=== PATIENT | female | born 1945 | race Caucasian/White ===

== ENCOUNTER 2016-06-02 10:08 | Inpatient (IN) | payer OTHER ==
[2016-05-19 12:49] VITALS: BMI 23.0
--- NOTE | 2016-05-19 13:31 | PAT Medication Instructions ---
Service Date May 19, 2016. Current Home Medication List Buspirone Hcl (Buspirone Hcl), 10 MG PO BID Clonazepam (Klonopin), 0.5 MG PO BID PRN for Anxiety Ferrous Sulfate (Kp Ferrous Sulfate), 1 TAB PO QAM Fluticasone Propionate (Nasal) (Flonase Allergy Relief), 2 SPRAY NA DAILY PRN for CONGESTION Hctz/Lisinopril (Lisinopril/Hctz 10/12.5 Mg), 1 TAB PO QAM Melatonin (Melatonin Maximum Strengt), 1 TAB PO HS Pantoprazole (Protonix), 40 MG PO DAILY PRN for STOMACH Paroxetine (Paxil), 40 MG PO QAM Trazodone Hcl (Desyrel), 50-100 MG PO HS Valacyclovir Hcl (Valtrex), 1 GM PO DAILY PRN for COLD SORE Medication Instructions For Your Scheduled Surgery - Hold the following medications the morning of surgery: Hctz/Lisinopril (Lisinopril/Hctz 10/12.5 Mg), 1 TAB PO QAM Ferrous Sulfate (Kp Ferrous Sulfate), 1 TAB PO QAM Valacyclovir Hcl (Valtrex), 1 GM PO DAILY PRN for COLD SORE - Take the following medications the morning of surgery with a sip of water: Paroxetine (Paxil), 40 MG PO QAM Pantoprazole (Protonix), 40 MG PO DAILY PRN for STOMACH Fluticasone Propionate (Nasal) (Flonase Allergy Relief), 2 SPRAY NA DAILY PRN for CONGESTION Clonazepam (Klonopin), 0.5 MG PO BID PRN for Anxiety Buspirone Hcl (Buspirone Hcl), 10 MG PO BID - Take the following medications as scheduled the night before surgery: Trazodone Hcl (Desyrel), 50-100 MG PO HS Melatonin (Melatonin Maximum Strengt), 1 TAB PO HS Clonazepam (Klonopin), 0.5 MG PO BID PRN for Anxiety Buspirone Hcl (Buspirone Hcl), 10 MG PO BID If you have any questions please call us at [phone] or [phone] ( [place]) or [phone]
[2016-05-19 14:08] LABS: BASO % 0.3 %; BASO ABS # 0.02 K/uL (0-0.2); COMPLETE YES; HEMATOCRIT 39.3 % (37-47); IG% 0.3 %; LYMPH % 29.2 %; LYMPH ABS # 2.07 K/uL (1.2-3.4); MEAN CELL VOLUME 82.4 fL (80-100); MEAN CORPUSCULAR HEMOGLOBIN 28.5 pg (25-34); MEAN CORPUSCULAR HGB CONC 34.6 g/dl (32-36); MEAN PLATELET VOLUME 8.8 fL (7.4-10.4); MONO % 5.1 %; NEUT % 64.1 %; PLATELET COUNT 328 K/uL (130-400); RED BLOOD COUNT 4.77 M/uL (4.2-5.4)
--- NOTE | 2016-05-19 14:16 | DIAGNOSTIC IMAGING REPORT ---
CHEST PREADMISSION(PA/LAT) CLINICAL HISTORY: Preoperative chest COMPARISON STUDY: None FINDINGS: The heart is normal in size. There is a right aortic arch. There is a retrocardiac opacity containing air bubble, consistent with a hiatal hernia. There is no failure. There is no focal pulmonary consolidation. There are no pleural effusions. There is an L1 compression deformity.[ IMPRESSION: 1. Right aortic arch 2. Small hiatal hernia 3. Age-indeterminate L1 compression fracture 4. No evidence of failure. No evidence of focal pulmonary consolidation Electronically signed by: Norberto Abreu M.D. 05/19/2016 2:14 PM Dictated Date/Time: 05/19/2016 2:13 PM
[2016-05-19 14:19] LABS: URINE APPEARANCE CLEAR (CLEAR); URINE BILIRUBIN NEG (NEG); URINE COLOR YELLOW; URINE EPITHELIAL CELL AUTO 20-30 /lpf (0-5); URINE NITRITE NEG (NEG); URINE SPECIFIC GRAVITY 1.012 (1.000-1.030); UROBILINOGEN NEG (NEG); ZZUR CULT IF INDIC CLEAN CATCH NO
[2016-05-19 14:24] LABS: PROTHROMBIN TIME (PATIENT) 10.6 SECONDS (9.0-12.0)
[2016-05-19 14:29] LABS: BUN/CREATININE RATIO 13.3 (10-20); CALCIUM 9.3 mg/dl (8.5-10.1); CREATININE 1.2 mg/dl (0.60-1.20); POTASSIUM 2.9 mmol/L (3.5-5.1)
[2016-05-19 14:30] LABS: MANUAL MICROSCOPIC REQUIRED? NO; REVIEW REQ? NO
--- NOTE | 2016-06-01 12:12 | HISTORY & PHYSICAL EXAMINATION ---
DATE OF ADMISSION: 06/02/2016 CHIEF COMPLAINT: Left knee pain. HISTORY OF PRESENT ILLNESS: Tati is a 70-year-old female with a multiple-year history of pain in her left knee. The patient rates her pain a 9/10. She has pain with her daily activities. She has limited standing and walking tolerance. Pain is worse with weightbearing. The patient has had anti-inflammatories, bracing, home exercise program, and narcotics without relief. She has failed conservative treatment and is scheduled for a left knee replacement. PAST MEDICAL HISTORY: Anxiety. She denies heart disease, diabetes or DVT. PAST SURGICAL HISTORY: Spinal fusion and appendectomy. SOCIAL HISTORY: She denies alcohol or tobacco use. She lives in a single story home. She lives alone and is retired but her daughter is planning to stay with her postoperatively. FAMILY HISTORY: Positive for PE x2 in her daughter status post hip replacement. MEDICATIONS: Fluticasone 50 mcg, ferrous sulfate 325 mg, Percocet 5/325 p.r.n., buspirone 10 mg twice daily, pantoprazole 40 mg daily, trazodone 50 mg 2 tablets at bedtime, melatonin 5 mg at bedtime, aspirin 81 mg, ProAir HFA 108 mcg 2 puffs p.r.n., valacyclovir 2 tabs q. 12 hours p.r.n., clonazepam 0.5 mg 2 tablets b.i.d., paroxetine 40 mg daily, lisinopril/hydrochlorothiazide 10/12.5 mg daily. ALLERGIES: DEMEROL AND BACTRIM. REVIEW OF SYSTEMS: See HPI. Ten other systems reviewed, all negative. PHYSICAL EXAMINATION: VITAL SIGNS: Height 5 feet 2 inches, weight 130 pounds, BMI is 24. GENERAL: This is a well-developed, well-nourished female who is alert and oriented x3. Mood and affect are appropriate. HEENT: Normocephalic, atraumatic. Mucous membranes are moist and intact. NECK: Supple without lymphadenopathy. HEART: Regular rate and rhythm without rubs or gallops. A systolic murmur noted. LUNGS: Clear to auscultation without wheezes or rhonchi. ABDOMEN: Soft and nontender. Bowel sounds are equal and active. EXTREMITIES: No ecchymosis, redness or warmth. Thigh and calf are soft and nontender. She has valgus deformity. Range of motion is from 0-115 degrees with +1 laxity. She has crepitus with range of motion. She is neurovascularly intact with +5/5 strength. X-RAY EXAMINATION: AP and lateral views show joint space narrowing and osteophyte formation. IMPRESSION: Degenerative joint disease, left knee. PLAN: The patient will be admitted for a left total knee arthroplasty. We will plan on aspirin for DVT prophylaxis. The patient will likely have home physical therapy. PCP is Dr. Devendra Harvey.
[2016-06-02] VITALS (9 sets, daily range): BP systolic 86–138; BP diastolic 50–94; PULSE 54–76; TEMP 36.5–36.9; O2SAT 94–99; Ht 160 cm; Wt 59.5 kg
[~2016-06-02] VITALS: Ht 160 cm; Wt 59.5 kg
[2016-06-02] MEDS: TRANEXAMIC ACID INJ 1,000 MG in SODIUM CHLORIDE 0.9% 100ML 100 ML IV SCH ×2 (06:30→13:02)
[~2016-06-02 10:08] MED LIST: ACETAMINOPHEN 500 MG TAB PO SCH; BUPIVACAINE 0.5 % 5 MG/1 ML PF 10ML VIAL ONE; BUSP-8 PO; CLON0.5T3 PO; DEXAMETHASONE 4 MG TAB PO SCH; FAMOTIDINE 20 MG TAB PO SCH; FERR1TAB13 PO; FLUT0.15; GABAPENTIN 300 MG CAP PO SCH; LACTATED RINGER'S 1000ML 1,000 ML IV SCH; LACTATED RINGER'S 1000ML 500 ML IV ONE; LACTATED RINGER'S 1000ML IV SCH; LSN/10125 PO; MELATAB2 PO; METOCLOPRAMIDE HCL 10 MG TAB PO SCH; OXYCODONE HCL 10 MG TABCR (OXYCONTIN) PO SCH; PANT40TA PO; PARO1TAB29 PO; POLYMYXIN B SULFATE 100,000 UNITS in NSS 100ML IR SCH; ROPIVACAINE 5MG/ML 30 ML 150 MG, BUPIVACAINE/EPINEPHR 0.5% MPF 30 ML, KETOROLAC TROMETH... INFIL SCH; TRAZ-119 PO; VALA1TAB31 PO; VANCOMYCIN INJ 400 MG in NSS 100ML IR SCH
[2016-06-02] MEDS ORDERED: EpHEDrine SULFATE INJ 50 MG/ML AMP IV PRN (11:45)
[2016-06-02] MEDS ORDERED: ONDANSETRON INJ 2 MG/ML 2 ML VIAL IV PRN ×2 (11:45→14:45)
[2016-06-02] MEDS ORDERED: FENTANYL CITRATE INJ 50 MCG/1 ML 2 ML VIAL IV PRN (11:45)
[2016-06-02] MEDS ORDERED: ATROPINE SULFATE 0.1 MG/ML 5ML SYR IV PRN (11:45)
[2016-06-02] MEDS ORDERED: MoRPHine SULFATE 10 MG/ML CARP/VIAL IV PRN (11:45)
[2016-06-02] MEDS ORDERED: MIDAZOLAM HCL 1 MG/ML 2ML VIAL ONE ×2 (11:55)
[2016-06-02] MEDS ORDERED: FENTANYL CITRATE INJ 50 MCG/1 ML 2 ML VIAL ONE (11:55)
--- NOTE | 2016-06-02 12:20 | History & Physical Bridge Note ---
H&P Re-Evaluation Bridge Note: I have examined the patient, reviewed the History & Physical and in the interval since the performance of the History & Physical I have noted the following changes of clinical significance: No changes noted
[2016-06-02] MEDS ORDERED: ORTHO JOINT ANESTHETIC ONE (13:06)
[2016-06-02] MEDS ORDERED: BUPIVACAINE/EPINEPHRINE 0.25% 1:200,000 30 ML VIAL ONE (13:07)
[2016-06-02] MEDS ORDERED: BACITRACIN 50000 UNIT VIAL ONE (13:07)
[2016-06-02] MEDS ORDERED: POVIDONE-IODINE OP SOLN 30 ML BTL ONE (13:07)
[2016-06-02] MEDS: CEFAZOLIN 2000 MG/60 ML D5W 60 ML IV SCH ×2 (13:22→13:29)
--- NOTE | 2016-06-02 14:31 | [facility] Post Operative Brief Note ---
Immediate Operative Summary Operative Date Jun 02, 2016. Pre-Operative Diagnosis Degenerative joint disease, left knee Post-Operative Diagnosis Same as preop Procedure(s) Performed Left total knee arthroplasty Surgeon Dr. Paredes Instructor Traffic Safety Surgeon(s) Aparna Kowalski PA-C Estimated Blood Loss 50 cc Findings djd Specimens A: left knee bone and tissue Complication(s) None Disposition Recovery Room / PACU
[2016-06-02] MEDS ORDERED: FLUTICASONE PROPIONATE NA SPR 16 GM BTL PRN (14:45)
[2016-06-02] MEDS ORDERED: BISACODYL 10 MG SUPP PR PRN (14:45)
[2016-06-02] MEDS ORDERED: ZOLPIDEM TARTRATE 5 MG TAB PO PRN (14:45)
[2016-06-02] MEDS ORDERED: OXYCODONE HCL IR 5 MG TAB (IMMEDIATE RELEASE) PO PRN (14:45)
[2016-06-02] MEDS ORDERED: TRAMADOL HCL 50 MG TAB PO PRN (14:45)
[2016-06-02] MEDS ORDERED: DiphenhydrAMINE HCL 50 MG/ML VIAL IV PRN (14:45)
[2016-06-02] MEDS ORDERED: KETOROLAC TROMETHAMINE 15 MG/ML VIAL IV. PRN (14:45)
[2016-06-02] MEDS ORDERED: MAGNESIUM HYDROXIDE SUSP 30 ML UDC PO PRN (14:45)
[2016-06-02] MEDS ORDERED: ALUMINUM/MAGNESIUM/SIMETH (MAALOX MAX) 30 ML UDC PO PRN (14:45)
[2016-06-02] MEDS ORDERED: CLONAZEPAM 0.5 MG TAB PO PRN (14:45)
[2016-06-02] MEDS ORDERED: MoRPHine SULFATE 2 MG/ML CARP IV PRN (14:45)
[2016-06-02] MEDS ORDERED: METOCLOPRAMIDE HCL INJ 5 MG/ML 2 ML VIAL IV PRN (14:45)
[2016-06-02] MEDS ORDERED: SOD PHOSPHATE/SOD BIPHOSPHATE ENEMA 132 ML BTL PR PRN (14:45)
[2016-06-02] MEDS ORDERED: PROPOFOL IV EMULSION 10 MG/ML 20 ML VIAL IV ONE (15:05)
--- NOTE | 2016-06-02 15:21 | DIAGNOSTIC IMAGING REPORT ---
LEFT KNEE 2 VIEWS History: Left total knee arthroplasty. Degenerative arthritis. Postop. FINDINGS: The patient is status post a left total knee arthroplasty. The hardware is intact. No fracture or dislocation. Surgical drains are in place. IMPRESSION: Left total knee arthroplasty. No evidence for hardware complication. Electronically signed by: Bishop Dominguez M.D. 06/02/2016 3:20 PM Dictated Date/Time: 06/02/2016 3:19 PM
--- NOTE | 2016-06-02 15:30 | Anesthesiology Progress Note ---
Anesthesia Post Op Note Date & Time Jun 02, 2016 at 15:30 Vital Signs Pain Intensity: 0 Vital Signs Past 12 Hours Date Time Temp Pulse Resp B/P Pulse Ox O2 Delivery O2 Flow Rate FiO2 06/02/16 15:20 73 16 92/61 94 Nasal Cannula 2 06/02/16 15:10 69 14 96/57 98 Mask 10 06/02/16 15:01 37.1 79 14 110/62 98 Mask 10 06/02/16 10:51 36.7 74 20 138/94 96 Room Air Notes Mental Status: alert / awake / arousable, participated in evaluation Pt Amnestic to Procedure: Yes Nausea / Vomiting: adequately controlled Pain: adequately controlled Airway Patency, RR, SpO2: stable & adequate BP & HR: stable & adequate Hydration State: stable & adequate Neuraxial Anesthesia: was administered, sensory block is resolving Anesthetic Complications: no major complications apparent
--- NOTE | 2016-06-02 16:37 | OPERATIVE REPORT ---
DATE OF OPERATION: 06/02/2016 PREOPERATIVE DIAGNOSIS: Degenerative arthritis, left knee. POSTOPERATIVE DIAGNOSIS: Same. PROCEDURE: Left total knee with patient matched implant. SURGEON: Dr. Paredes. METAL SPRAYER PRODUCTION: ALISE Arevalo. ANESTHESIA: Spinal. BLOOD LOSS: 50 mL. REPLACEMENT FLUIDS: 1500 mL crystalloid. DRAINS: Hemovac x2. CULTURES: None. COMPLICATIONS: None. COMPONENTS USED: [employer] Knee System: Femur size 3, tibia size 2 x 11, patella size 21. NOTE: ALISE Arevalo was present and assisted throughout due to the complicated nature of this case. He helped with preparation and set up, first assisted throughout and personally closed capsule, subcutaneous and skin layers and applied the postoperative dressing. DESCRIPTION: Following satisfactory spinal, the patient was supine. A tourniquet was placed but not inflated. The lower extremity was prepared with ChloraPrep and draped sterilely. Following a surgical time-out, a midline incision was made with a trivector approach. The knee showed severe grade 4 changes, especially in the lateral and patellofemoral compartments. The cruciate ligaments were excised. The patient matched femoral block was applied. Femoral distal rotation and resection were set and completed. The 4-in-1 block was used to finish preparation of the femur. The patient matched tibial block was applied. Tibial resection was completed. The patella was freehand cut. Soft tissue balancing was completed and a trial reduction showed good tensioning and stability on the collateral ligaments, stable range of motion, and the patella tracked well. The trial components were removed. The capsule was prepared with the orthopedic cocktail. After irrigation, the components were cemented using Simplex G cement. When the cement had hardened, the Betadine soak was performed. When the cement had hardened, the Betadine was irrigated. Two drains were placed. The arthrotomy was closed with a running suture of 0 V-Loc. The subcutaneous tissues with 2-0 Vicryl and the skin with a running subcuticular stitch of 3-0 V-Loc. Dermabond and a dry dressing were applied. The patient was returned to her bed in stable condition. I attest to the content of the Intraoperative Record and any orders documented therein. Any exceptio ns are noted below.
[2016-06-02] MEDS: D5W AND 1/2NSS + 20MEQ KCL 1,000 ML IV SCH (19:09)
[2016-06-02] MEDS ORDERED: NON-FORMULARY MEDICATION (Melatonin (Melatonin Maximum Strengt) 1 TAB) PO SCH (21:00)
[2016-06-02] MEDS ORDERED: SENNA 8.6 MG TAB PO SCH (21:00)
[2016-06-02] MEDS ORDERED: TRAZODONE HCL 50 MG TAB PO SCH (21:00)
[2016-06-02] MEDS: ACETAMINOPHEN 500 MG TAB PO SCH (21:04)
[2016-06-02] MEDS: ASPIRIN 81 MG ECTAB PO SCH (21:04)
[2016-06-02] MEDS: OXYCODONE HCL 10 MG TABCR (OXYCONTIN) PO SCH (21:08)
[2016-06-02] MEDS: CEFAZOLIN IV 1,000 MG in DEXTROSE 5% 50ML 50 ML IV SCH (22:30)
[2016-06-03 04:00] VITALS: BP 101/60; PULSE 51; TEMP 36.4; O2SAT 96
[2016-06-03] MEDS: ACETAMINOPHEN 500 MG TAB PO SCH (05:01)
[2016-06-03] MEDS: CEFAZOLIN IV 1,000 MG in DEXTROSE 5% 50ML 50 ML IV SCH (05:01)
[2016-06-03] MEDS: D5W AND 1/2NSS + 20MEQ KCL 1,000 ML IV SCH (05:01)
[2016-06-03 06:05] LABS: HEMATOCRIT 29.4 % (37-47); MEAN CELL VOLUME 85.7 fL (80-100); MEAN CORPUSCULAR HGB CONC 32.7 g/dl (32-36); MEAN PLATELET VOLUME 8.2 fL (7.4-10.4); PLATELET COUNT 229 K/uL (130-400); RED BLOOD COUNT 3.43 M/uL (4.2-5.4); WHITE BLOOD COUNT 8.37 K/uL (4.8-10.8)
[2016-06-03 06:36] LABS: BUN/CREATININE RATIO 9.9 (10-20); CALCIUM 8.5 mg/dl (8.5-10.1); CREATININE 1.1 mg/dl (0.60-1.20); POTASSIUM 4.5 mmol/L (3.5-5.1)
[2016-06-03 07:34] VITALS: BP 118/78; PULSE 58; TEMP 36.6; O2SAT 97
[2016-06-03 07:40] VITALS: O2SAT 97
--- NOTE | 2016-06-03 07:47 | Orthopedic Progress Note ---
Orthopedic Progress Note Date of Service Jun 03, 2016. Subjective Post OP Day: 1 Reports: feeling well, pain controlled w PO medications, Denies: SOB, chest pain , complaints Objective calves soft nontender, N/V intact, dressing C/D/I, A&O x3, hemovac drainage (75 last shift) Date Time Temp Pulse Resp B/P Pulse Ox O2 Delivery O2 Flow Rate FiO2 06/03/16 07:40 97 Room Air 06/03/16 07:34 36.6 58 19 118/78 97 Room Air 06/03/16 04:00 36.4 51 16 101/60 96 Room Air 06/02/16 23:30 56 109/63 06/02/16 23:15 Room Air 06/02/16 23:10 36.6 76 16 86/50 99 Room Air 92/55 06/02/16 21:40 126/76 06/02/16 21:28 36.9 64 17 89/56 94 Room Air 06/02/16 20:23 36.6 54 17 95/60 99 Room Air Nasal Cannula 06/02/16 19:37 Nasal Cannula 2.0 06/02/16 19:28 36.5 62 17 92/56 98 Room Air 06/02/16 18:44 36.7 73 17 104/67 99 Room Air 06/02/16 18:15 74 16 107/69 98 06/02/16 18:01 Nasal Cannula 2.0 06/02/16 17:52 99 Nasal Cannula 2.0 06/02/16 17:15 57 16 94/51 98 Nasal Cannula 2 06/02/16 17:00 36.9 56 16 93/57 98 Nasal Cannula 2 06/02/16 16:45 62 16 98/62 96 Nasal Cannula 2 06/02/16 16:30 61 16 99/60 97 Nasal Cannula 2 06/02/16 16:15 64 16 95/56 96 Nasal Cannula 2 06/02/16 16:05 36.8 62 16 98/50 94 Nasal Cannula 2 06/02/16 15:55 68 16 103/52 92 Nasal Cannula 2 06/02/16 15:40 36.9 65 16 107/54 95 Nasal Cannula 2 06/02/16 15:30 70 16 102/60 94 Nasal Cannula 2 06/02/16 15:20 73 16 92/61 94 Nasal Cannula 2 06/02/16 15:10 69 14 96/57 98 Mask 10 06/02/16 15:01 37.1 79 14 110/62 98 Mask 10 06/02/16 10:51 36.7 74 20 138/94 96 Room Air Laboratory Results 24 Hours: Test 06/03/16 05:30 Hematocrit 29.4 % Hemoglobin 9.6 g/dL Assessment & Plan Assessment: POD 1 TKA Plan: HOME TODAY W HOME NURSING DC DRESSING BEFORE DC Inhouse Planning Pain Management: Oxycontin, PO Tylenol, Oxy IR DVT Prophylaxis: TEDs, SCDs, ASA Discharge Planning Discharge Planning: home with home health Pain Management: Oxycontin, PO Tylenol, Oxy IR DVT Prophylaxis: TEDs, ASA Therapy: Physical Therapy
--- NOTE | 2016-06-03 08:08 | Discharge Instructions ---
Discharge Instructions Date of Service Jun 03, 2016. Admission Reason for Admission: Left Knee Degenerative Arthritis Discharge Discharge Diagnosis / Problem: sp left total knee Discharge Goals Goal(s): Decrease discomfort, Improve function, Increase independence Activity Recommendations Activity Limitations: per Instructions/Follow-up section . Instructions / Follow-Up Instructions / Follow-Up ACTIVITY RECOMMENDATIONS: SELF CARE INSTRUCTIONS AFTER TOTAL KNEE REPLACEMENT A. You may need to continue a physical therapy program after discharge from the hospital. There are several options available to you. Your doctor will assist you in selecting the best one for you. 1. An out-patient facility 2 to 3 times a week for therapy or home therapy. 2. Continue working on all exercises taught to you in the hospital. Your goals should be to increase bending of your knee to 90 degrees and beyond and to fully straighten your knee. B. You may progress at your own pace from walking with a walker or crutches to a cane; then to no assistive devices. C. Make walking a part of your daily routine. Be up as much as comfortable with rest periods throughout the day. Rest with leg elevation is very important. Use the ice wrap frequently for the first 3-4 weeks. D. There are no restrictions on activities. You may ride in a car, shop, participate in rn clinical review and all social activities. E. Wear the long elastic stockings (SONIDO hose) 20 hours a day for 2 weeks after surgery. They can be removed several times a day for laundering and for a bath. F. You may shower, no tub baths until cleared by your doctor. SPECIAL CARE INSTRUCTIONS: VERY IMPORTANT TO READ AND REVIEW A. There are a few signs you need to watch for after you are home. Call [facility] if you notice any of the followin. Increased severe knee pain. Some pain is expected especially when you exercise. 2. Increased swelling in your leg or knee; pain or swelling of the calf muscle in either lower leg. 3. Any fluid drainage from the incision. 4. Shortness of breath or chest pain. B. Please call [facility] at if you have any concerns or questions about your operation or recovery. The doctor or his nurse will return your call promptly. C. You must take antibiotics before dental work, bladder, bowel or other surgery. Your doctor will provide you with a permanent care to carry describing this precaution. IMPORTANT: * REMEMBER TO TAKE ASPIRIN, 81 MG, TWICE DAILY FOR 4 WEEKS UNLESS OTHERWISE DIRECTED. THIS IS YOUR BLOOD THINNER. * HIGH RISK PATIENTS MAY BE PRESCRIBED A STRONGER BLOOD THINNER. THIS WILL BE PROVIDED AT DISCHARGE. * CALL IF INCREASED PAIN, REDNESS, DRAINAGE OR FEVER GREATER THAT 101. * WEAR SONIDO HOSE 20 HOURS PER DAY FOR 2 WEEKS. DERMABOND Prineo- This is a mesh tape dressing that is covered with glue. It should remain in place until the incision is properly healed, usually 10-14 days. This dressing is designed to naturally slough off. You may trim the excess mesh tape as it peels off. Incision may be briefly wet in a shower. Dry immediately by blotting with a clean, dry towel. Do not bath or swim until instructed by your doctor. Do not scratch, rub, or pick at the dressing. Do not apply any topical ointments or lotions until dressing is completely removed and/or instructed by your doctor. There may be a small piece of suture material at one end of your incision. Do not pull or trim this. If it is bothersome or catching on clothing, you may cover it with a band-aid. FOLLOW UP VISIT: If appointment is not already scheduled: Please call [facility] to make a follow-up appointment for 2 weeks after your surgery at . Current Hospital Diet Patient's current hospital diet: Regular Diet Discharge Diet Recommended Diet: Regular Diet Procedures Procedures Performed: Left total knee arthroplasty Pending Studies Studies pending at discharge: no Medical Emergencies . Who to Call and When: Medical Emergencies: If at any time you feel your situation is an emergency, please call 911 immediately. . Non-Emergent Contact Non-Emergency issues call your: Surgeon . "Provider Documentation" section prepared by Lilian Malcolm. VTE Core Measure Inpt VTE Proph given/why not?: Other Anticoagulation, T.E.DAmirah Jean Baptiste, SCD's [place] Drug Monitoring Program Search Results: patient reviewed within database, no issues identified
[2016-06-03] MEDS ORDERED: SNK PO (08:11)
[2016-06-03] MEDS ORDERED: MORP-157 PO (08:11)
[2016-06-03] MEDS ORDERED: ONDA8TAB6 PO (08:11)
[2016-06-03] MEDS ORDERED: ACET-1138 PO (08:11)
[2016-06-03] MEDS ORDERED: ASPEC81 PO (08:11)
[2016-06-03] MEDS ORDERED: RXC5 PO (08:11)
[2016-06-03] MEDS: ASPIRIN 81 MG ECTAB PO SCH (08:38)
[2016-06-03] MEDS: OXYCODONE HCL 10 MG TABCR (OXYCONTIN) PO SCH (08:44)
[2016-06-03] MEDS ORDERED: NURSING VERBAL MED ORDER ONE (08:45)
[2016-06-03] MEDS ORDERED: MULTIVITAMIN TAB PO SCH (09:00)
[2016-06-03] MEDS ORDERED: FERROUS SULFATE 325 MG TAB PO SCH ×2 (09:00)
[2016-06-03] MEDS ORDERED: PANTOprazole SOD 40 MG TAB PO SCH (09:00)
[2016-06-03] MEDS ORDERED: PAROXETINE 20 MG TAB PO SCH (09:00)
--- NOTE | 2016-06-03 09:44 | Anesthesiology Progress Note ---
Anesthesia Post Op Note Date & Time Jun 03, 2016 at 09:45 Vital Signs Vital Signs Past 12 Hours Date Time Temp Pulse Resp B/P Pulse Ox O2 Delivery O2 Flow Rate FiO2 06/03/16 07:40 97 Room Air 06/03/16 07:34 36.6 58 19 118/78 97 Room Air 06/03/16 07:26 Room Air 06/03/16 04:00 36.4 51 16 101/60 96 Room Air 06/02/16 23:30 56 109/63 06/02/16 23:15 Room Air 06/02/16 23:10 36.6 76 16 86/50 99 Room Air 92/55 Notes Mental Status: alert / awake / arousable, participated in evaluation Pt Amnestic to Procedure: Yes Nausea / Vomiting: adequately controlled Pain: adequately controlled Airway Patency, RR, SpO2: stable & adequate BP & HR: stable & adequate Hydration State: stable & adequate Neuraxial Anesthesia: was administered, sensory block resolved Anesthetic Complications: no major complications apparent
[2016-06-03 10:09] VITALS: BP 118/78; PULSE 58; TEMP 36.6; O2SAT 97
--- NOTE | 2016-06-04 11:31 | DISCHARGE SUMMARY ---
DISCHARGE DIAGNOSIS: Degenerative joint disease, left knee. SECONDARY DIAGNOSIS: Anxiety. CONSULTS: None. COMPLICATIONS: None. PROCEDURES: Left total knee arthroplasty by Dr. Raymundo Paredes on 06/02/2016. BRIEF HISTORY: As dictated in the history and physical. HOSPITAL SUMMARY: The patient was admitted on the above-noted date and had the above-noted surgery performed which she tolerated well. On the first postoperative day, the patient was feeling well and pain was controlled. Calves were soft, nontender, neurovascularly intact. Dressings clean, dry and intact. Toes were mobile. Vital signs were stable, she was afebrile, and hemoglobin was 9.6. She was started on physical therapy protocol and continued on DVT prophylaxis and pain management. She was progressing well with her physical therapy and remaining stable and was felt she could be discharged to home on 06/03/2016. For further review, please see chart. LABORATORY AND X-RAY DATA: As per chart. DISCHARGE INSTRUCTIONS: The patient was discharged to home in satisfactory condition on 06/03/2016. DIET: Regular. ACTIVITY: Follow TK instruction sheets and special care instructions as noted. Follow up with Dr. Raymundo Paredes in 2 weeks from the day of your surgery. The patient to call for appointment if one has not been made for you. DISCHARGE MEDICATIONS: Acetaminophen 1000 mg p.o. q. 8 hours, aspirin 81 mg p.o. b.i.d., MS Contin 15 mg p.o. q. 12 hours, Zofran 8 mg p.o. q. 8 hours p.r.n., oxycodone 5-10 mg p.o. q. 4 hours p.r.n., senna 17.2 mg p.o. at bedtime. Resume home meds as listed in discharge instruction sheets.
== END 2016-06-03 11:45 | disposition home health service (06) | DRG 470 ==
LOC: ENRESERVDT → ENRESERVTM → C.ACU 10:08 → C.3E 12:00
PROVIDERS: ADMIT Orthopaedic Surgery; ATTEND Orthopaedic Surgery
PROC: 0SRD0J9 Replacement of Left Knee Joint with Synthetic Substitute, Cemented, Open Approach (ICD-10-PCS; principal; 2016-06-02 12:45)
DX: M17.12 Unilateral primary osteoarthritis, left knee (principal); F41.9 Anxiety disorder, unspecified; Z79.899 Other long term (current) drug therapy